=== PATIENT | male | born 1965 ===

== ENCOUNTER 2023-03-16 08:53 | Emergency (ER) | payer OTHER ==
[~2023-03-16] VITALS: Ht 172.7 cm; Wt 79.4 kg
[2023-03-16 09:57] LABS: BASOPHILS ABSOLUTE AUTO 0.06 K/mm3 (0.00-0.23); BASOPHILS PERCENT AUTO 1 % (0-2); EOSINOPHILS PERCENT AUTO 1 % (0-6); Hematocrit 39.7 % (37.0-53.0); Hemoglobin 13.3 g/dL (13.5-17.5); IMMATURE GRAN ABSOLUTE AUTO 0.03 K/mm3 (0.00-0.10); IMMATURE GRAN PERCENT AUTO 0 % (0-1); LYMPHOCYTES ABSOLUTE AUTO 1.07 K/mm3 (0.84-5.20); LYMPHOCYTES PERCENT AUTO 10 % (21-46); MONOCYTES ABSOLUTE AUTO 0.88 K/mm3 (0.16-1.47); MONOCYTES PERCENT AUTO 8 % (4-13); Mean Corpuscular HGB 34.8 pg (26.0-34.0); Mean Corpuscular HGB Conc 33.5 g/dL (31.5-36.5); Mean Corpuscular Volume 104 fL (80-100); Mean Platelet Volume 10.1 fL (9.1-12.4); NEUTROPHILS PERCENT AUTO 81 % (41-73); Platelet Count 222 K/mm3 (150-400); RDW Coefficient Variation 13.2 % (11.7-14.2); RDW Standard Deviation 50.6 fL (35.1-46.3); Red Blood Cell Count 3.82 M/mm3 (4.30-5.90); White Blood Cell Count 11.14 K/mm3 (4.00-11.30)
[2023-03-16] MEDS ORDERED: METR500 PO (09:59)
[2023-03-16] MEDS ORDERED: CIPR500 PO (10:00)
[2023-03-16] MEDS ORDERED: AZULFIDINE500 M1 PO (10:01)
[2023-03-16] MEDS ORDERED: Crestor20 MG (10:01)
[2023-03-16] MEDS ORDERED: Norco 10-325 T1 EACH PO (10:02)
[2023-03-16] MEDS ORDERED: BACL10 PO (10:02)
[2023-03-16] MEDS ORDERED: GABA400 PO (10:03)
[2023-03-16] MEDS ORDERED: TRAZ50 PO (10:03)
[2023-03-16] MEDS ORDERED: SERT100 PO (10:03)
[2023-03-16] MEDS ORDERED: Chantix1 MG (10:03)
[2023-03-16] MEDS ORDERED: IBUP200 PO (10:04)
[2023-03-16 10:15] LABS: Albumin, Blood 3.9 g/dL (3.4-5.0); Albumin/Globulin Ratio 1.3 (0.8-1.8); Bilirubin, Total 0.2 mg/dL (0.1-1.0); Bun/Creatinine Ratio 17.5 (12.0-20.0); Calcium, Blood 8.9 mg/dL (8.5-10.1); Creatinine, Blood 1.03 mg/dL (0.60-1.20); Globulin, Blood 2.9 g/dL (2.2-4.0); Potassium, Blood 4.2 mmol/L (3.5-5.5); Total Protein, Blood 6.8 g/dL (6.4-8.2)
[2023-03-16 16:00] VITALS: BP 136/84
[2023-03-16] MEDS ORDERED: OMEP20ER PO (16:24)
== END 2023-03-16 16:42 | disposition home or self-care (01) ==
LOC: ER 08:53
PROVIDERS: Family Medicine
DX: R10.13 Epigastric pain (principal); K59.00 Constipation, unspecified; R11.0 Nausea; R09.81 Nasal congestion
CPT/HCPCS: 74177; 74181; 76705; 80053; 83690; 85025; 96360-59; 99285-25; A9270; J7030; J7512; Q9967